=== PATIENT | male | born 1955 | race Caucasian/White ===

== ENCOUNTER → 2021-06-05 | Outpatient (CLI) | payer OTHER | LOC: CT 12:43 | DX: K11.9 Disease of salivary gland, unspecified (principal) | CPT/HCPCS: 70491; 82565; 84520; Q9967 ==

== ENCOUNTER → 2021-07-05 | Outpatient (CLI) | payer OTHER ==
[2021-07-05 08:49] LABS: HEMOGLOBIN 12.5 gm/dl (14.0-17.5); RED BLOOD COUNT 4.19 M/UL (4.20-5.50); WHITE BLOOD COUNT 7.3 K/UL (4.5-11.0)
== END ==
LOC: US 08:29
PROVIDERS: Otolaryngology
DX: K11.9 Disease of salivary gland, unspecified (principal)
CPT/HCPCS: 36415; 85027; 85610; 85730

== ENCOUNTER → 2022-01-03 | Outpatient (CLI) | payer OTHER | LOC: EXRD 12:42 | DX: D37.030 Neoplasm of uncertain behavior of the parotid salivary glands (principal) | CPT/HCPCS: 76536 ==